=== PATIENT | male | born 1965 | race Two or more races ===

== ENCOUNTER 2018-09-20 13:26 | Emergency (ER) | payer BC, OTHER ==
[~2018-09-20] VITALS: Ht 167.6 cm; Wt 86.2 kg
[~2018-09-20 13:26] MED LIST: ALBUPOW26; FLUT100M7
[2018-09-20 13:41] VITALS: BP 159/94
== END 2018-09-20 18:40 | disposition home or self-care (01) ==
LOC: ER 13:29
DX: S39.012A Strain of muscle, fascia and tendon of lower back, initial encounter (principal); J45.909 Unspecified asthma, uncomplicated; E78.5 Hyperlipidemia, unspecified; I10 Essential (primary) hypertension; V49.49XA Driver injured in collision with other motor vehicles in traffic accident, initial encounter; Y93.89 Activity, other specified; Y99.8 Other external cause status; Y92.410 Unspecified street and highway as the place of occurrence of the external cause
CPT/HCPCS: 72131